=== PATIENT | female | born 1950 | race African-American/Black ===

== ENCOUNTER 2020-06-10 12:58 | Emergency (ER) | payer MEDICARE, MEDICAID ==
[2020-06-10] MEDS ORDERED: Ketorolac Tromethamine 30 MG/ML VIAL ONE (14:33)
== END 2020-06-10 14:59 | disposition home or self-care (01) ==
LOC: CSHERS 12:58
DX: R04.0 Epistaxis (principal); M54.5 Low back pain; R51.9 Headache, unspecified; E11.9 Type 2 diabetes mellitus without complications; I10 Essential (primary) hypertension; I25.10 Atherosclerotic heart disease of native coronary artery without angina pectoris; E78.5 Hyperlipidemia, unspecified; E78.00 Pure hypercholesterolemia, unspecified; I25.2 Old myocardial infarction; F17.210 Nicotine dependence, cigarettes, uncomplicated; Z86.73 Personal history of transient ischemic attack (TIA), and cerebral infarction without residual deficits
CPT/HCPCS: 96372; 99283; J1885

== ENCOUNTER 2021-01-30 20:54 | Emergency (ER) | payer MEDICARE, MEDICAID | END 2021-01-30 21:48 | disposition home or self-care (01) | LOC: CSHERS 20:54 | DX: R04.0 Epistaxis (principal); I10 Essential (primary) hypertension; E11.9 Type 2 diabetes mellitus without complications; I25.10 Atherosclerotic heart disease of native coronary artery without angina pectoris; E78.5 Hyperlipidemia, unspecified; I25.2 Old myocardial infarction; Z86.73 Personal history of transient ischemic attack (TIA), and cerebral infarction without residual deficits; F17.210 Nicotine dependence, cigarettes, uncomplicated; Z79.82 Long term (current) use of aspirin; Z79.899 Other long term (current) drug therapy | CPT/HCPCS: 99283 ==

== ENCOUNTER 2021-03-24 12:33 | Inpatient (IN) | payer MEDICARE, MEDICAID ==
[2021-03-24 13:55] LABS: #Eosinphils 0.1 10x3/uL (0.0-0.5); #Monocytes 0.9 10x3/uL (0.0-1.1); #Neutrophils 9.3 10x3/uL (1.5-8.4); %Basophils 0.2 % (0.0-2.0); %Eosinophils 0.4 % (0.0-6.0); %Monocytes 7.4 % (0.0-10.0); %Neutrophils 79.5 % (40.0-75.0); Hemoglobin 11.7 g/dL (12.0-15.5); Mean Corpuscular HGB CONC 29.3 g/dL (32.0-36.0); Mean Corpuscular Hemoglobin 22.6 pg (27.0-33.0); Mean Corpuscular Volume 77.2 fl (81.6-98.3); Mean Platelet Volume 12.6 fl (7.4-10.4); Platelet Count 267 10x3/uL (150-450); RBC Distribution Width 14.3 % (11.5-14.5); Red Blood Cell (RBC) Count 5.17 10x6/uL (3.90-5.03); White Blood Cell (WBC) Count 11.7 10x3/uL (3.5-10.5)
[2021-03-24] MEDS ORDERED: Ondansetron PF 4 MG/2 ML Vial ONE (14:10)
[2021-03-24 14:15] LABS: ALT (SGPT) 81 U/L (8-55); AST (SGOT) 54 U/L (5-34); Albumin 3.8 g/dL (3.4-4.8); Alkaline Phosphatase 149 U/L (40-110); Anion Gap 18 mmol/L (10-20); BUN (Urea Nitrogen) 21 mg/dL (9.8-20.1); Bilirubin, Total 4.5 mg/dL (0.2-1.2); Calc. Creatinine Clearance 0 mL/min (70-130); Calcium 9.9 mg/dL (7.8-10.44); Carbon Dioxide 19 mmol/L (23-31); Chloride 103 mmol/L (98-107); Globulin 4.2 g/dL (2.4-3.5); Glucose 140 mg/dL (80-115); Potassium 3.7 mmol/L (3.5-5.1); Sodium 136 mmol/L (136-145)
[2021-03-24 14:16] LABS: Hypochromia SLIGHT = 6-15 cells (100X) (0-5/hpf); Microcytosis SLIGHT = 6-15 cells (100X) (0-5/hpf)
[2021-03-24 14:18] LABS: Platelet Morphology Comment Appears Adequate
[2021-03-24 14:44] LABS: Lipase 5338 U/L (8-78)
[2021-03-24] MEDS ORDERED: Morphine 4 MG/ML VIAL ONE (16:02)
[2021-03-24 16:49] LABS: SARS-CoV-2 NAA Rapid Test Not Detected (NotDetected)
[2021-03-24] MEDS ORDERED: Morphine 4 MG/ML VIAL SLOW IVP PRN (18:15)
[2021-03-24] MEDS ORDERED: hydrALAZINE 20 MG/ML VIAL SLOW IVP PRN (18:15)
[2021-03-24] MEDS ORDERED: HumaLOG 300 UNITS/3 ML VIAL SC PRN (18:15)
[2021-03-24] MEDS ORDERED: Dextrose 5% in Water 1,000 ML IV PRN (18:15)
[2021-03-24] MEDS ORDERED: Dextrose 50% Abboject 50 ML SYRINGE SLOW IVP PRN (18:15)
[2021-03-24] MEDS ORDERED: Ondansetron PF 4 MG/2 ML Vial IVP PRN (18:15)
[2021-03-24] MEDS ORDERED: Morphine 2 MG/ML VIAL SLOW IVP PRN (18:15)
[2021-03-24] MEDS ORDERED: Ondansetron ODT 4 MG TAB PO PRN (18:15)
[2021-03-24 20:50] VITALS: BMI 41.8
[2021-03-24] MEDS ORDERED: FLU VACC QS2021-22(65YR UP)/PF 240 MCG/0.7 ML SYRINGE IM ONE (21:15)
[2021-03-24] MEDS ORDERED: Scopolamine 1.5 mg/72 hour Patch TD SCH (21:15)
[2021-03-24] MEDS: Lactated Ringer's 1,000 ML IV SCH (22:56)
[2021-03-24] MEDS: Carvedilol 12.5 MG TAB PO SCH (22:57)
[2021-03-24] MEDS: Enoxaparin Sodium 40 MG/0.4 ML SYRINGE SC SCH (22:58)
[2021-03-25] MEDS: Lactated Ringer's 1,000 ML IV SCH ×5 (01:00→22:50)
[2021-03-25 04:07] LABS: #Monocytes 0.7 10x3/uL (0.0-1.1); #Neutrophils 5.7 10x3/uL (1.5-8.4); %Basophils 0.1 % (0.0-2.0); %Eosinophils 0.3 % (0.0-6.0); %Lymphocytes 12.8 % (18.0-47.0); %Monocytes 8.9 % (0.0-10.0); %Neutrophils 77.6 % (40.0-75.0); Hemoglobin 9.2 g/dL (12.0-15.5); Mean Corpuscular HGB CONC 29.5 g/dL (32.0-36.0); Mean Corpuscular Hemoglobin 22.4 pg (27.0-33.0); Mean Corpuscular Volume 75.9 fl (81.6-98.3); Platelet Count 173 10x3/uL (150-450); RBC Distribution Width 14.3 % (11.5-14.5); Red Blood Cell (RBC) Count 4.11 10x6/uL (3.90-5.03); White Blood Cell (WBC) Count 7.3 10x3/uL (3.5-10.5)
[2021-03-25 04:26] LABS: ALT (SGPT) 46 U/L (8-55); AST (SGOT) 25 U/L (5-34); Albumin 2.9 g/dL (3.4-4.8); Alkaline Phosphatase 105 U/L (40-110); Anion Gap 14 mmol/L (10-20); BUN (Urea Nitrogen) 25 mg/dL (9.8-20.1); Bilirubin, Total 2.9 mg/dL (0.2-1.2); Calc. Creatinine Clearance 52 mL/min (70-130); Calcium 7.9 mg/dL (7.8-10.44); Carbon Dioxide 19 mmol/L (23-31); Chloride 109 mmol/L (98-107); Globulin 2.8 g/dL (2.4-3.5); Glucose 96 mg/dL (80-115); Iron 41 ug/dL (50-170); Iron Binding Capacity, Total 154 mcg/dL (265-497); Lipase 660 U/L (8-78); Potassium 3.7 mmol/L (3.5-5.1); Protein, Total 5.7 g/dL (5.8-8.1); Sodium 138 mmol/L (136-145)
[2021-03-25 04:27] LABS: Hypochromia SLIGHT = 6-15 cells (100X) (0-5/hpf)
[2021-03-25] MEDS ORDERED: EPINEPHrine 1 MG/ML AMP ONE (07:01)
[2021-03-25] MEDS ORDERED: Iopamidol 30 ML ONE (07:02)
[2021-03-25] MEDS ORDERED: Bupivacaine PF 0.5% 30 ML VIAL ONE (07:02)
[2021-03-25] MEDS ORDERED: Indomethacin 50 MG SUPP ONE (07:03)
[2021-03-25] MEDS ORDERED: Ondansetron PF 4 MG/2 ML Vial ONE (07:27)
[2021-03-25] MEDS ORDERED: Glycopyrrolate 0.2 MG/ML 5 ML SYRINGE ONE (07:27)
[2021-03-25] MEDS ORDERED: Rocuronium Bromide 10 MG/ML (10ML VIAL) ONE (07:27)
[2021-03-25] MEDS ORDERED: Lidocaine 1% PF 5 ML VIAL ONE ×2 (07:27→08:47)
[2021-03-25] MEDS ORDERED: Fentanyl 100 MCG/2 ML VIAL ONE (07:27)
[2021-03-25] MEDS ORDERED: PROPOFOL 20 ML ONE (07:27)
[2021-03-25] MEDS ORDERED: Dexamethasone 4 mg/ml Vial ONE (07:28)
[2021-03-25] MEDS ORDERED: Succinylcholine 200 MG/10 ml SYRINGE FS ONE (07:28)
[2021-03-25] MEDS ORDERED: Ketamine 50 MG/ML (10ML VIAL) ONE (07:42)
[2021-03-25] MEDS ORDERED: HYDROmorphone 0.5 MG/0.5 ML SYRINGE ONE (07:42)
[2021-03-25] MEDS ORDERED: SUGAMMADEX SODIUM 200 MG/2 ML VIAL ONE (07:45)
[2021-03-25] MEDS ORDERED: ePHEDrine Sulfate 50 MG/10 ML VIAL ONE ×2 (08:50→09:52)
[2021-03-25] MEDS ORDERED: Pantoprazole 40 MG VIAL IVP SCH (09:00)
[2021-03-25] MEDS ORDERED: PHENYLEPHRINE-NS 100 MCG/ML 10 ML SYRINGE ONE ×2 (09:00→09:36)
[2021-03-25] MEDS ORDERED: Acetaminophen 500 MG TAB PO PRN (09:17)
[2021-03-25] MEDS: Carvedilol 12.5 MG TAB PO SCH ×2 (09:17→20:14)
[2021-03-25] MEDS ORDERED: Morphine 4 MG/ML VIAL SLOW IVP PRN (09:30)
[2021-03-25 12:03] LABS: Hemoglobin A1c 5.4 % (4.0-6.0)
[2021-03-25] MEDS: traMADol HCl 50 MG TAB PO PRN ×2 (15:44→20:15)
[2021-03-25] MEDS: Enoxaparin Sodium 40 MG/0.4 ML SYRINGE SC SCH (20:22)
[2021-03-25] MEDS ORDERED: Atorvastatin Calcium 10 MG TAB PO SCH (21:00)
[2021-03-26 04:03] LABS: #Monocytes 0.7 10x3/uL (0.0-1.1); #Neutrophils 6.7 10x3/uL (1.5-8.4); %Basophils 0.1 % (0.0-2.0); %Lymphocytes 8.3 % (18.0-47.0); %Monocytes 8.3 % (0.0-10.0); %Neutrophils 82.8 % (40.0-75.0); Mean Corpuscular HGB CONC 28.6 g/dL (32.0-36.0); Mean Corpuscular Hemoglobin 22.5 pg (27.0-33.0); Mean Corpuscular Volume 78.7 fl (81.6-98.3); Mean Platelet Volume 12.6 fl (7.4-10.4); Platelet Count 192 10x3/uL (150-450); RBC Distribution Width 14.4 % (11.5-14.5); Red Blood Cell (RBC) Count 4.45 10x6/uL (3.90-5.03); White Blood Cell (WBC) Count 8.2 10x3/uL (3.5-10.5)
[2021-03-26 04:05] LABS: ALT (SGPT) 54 U/L (8-55); AST (SGOT) 51 U/L (5-34); Albumin 3.3 g/dL (3.4-4.8); Alkaline Phosphatase 128 U/L (40-110); Anion Gap 14 mmol/L (10-20); BUN (Urea Nitrogen) 22 mg/dL (9.8-20.1); Bilirubin, Total 1.4 mg/dL (0.2-1.2); Calc. Creatinine Clearance 59 mL/min (70-130); Calcium 8.8 mg/dL (7.8-10.44); Carbon Dioxide 22 mmol/L (23-31); Chloride 107 mmol/L (98-107); Globulin 3.6 g/dL (2.4-3.5); Glucose 121 mg/dL (80-115); Lipase 21 U/L (8-78); Potassium 4.3 mmol/L (3.5-5.1); Protein, Total 6.9 g/dL (5.8-8.1); Sodium 139 mmol/L (136-145)
[2021-03-26 04:42] LABS: Hypochromia SLIGHT = 6-15 cells (100X) (0-5/hpf); Platelet Morphology Comment Appears Adequate; Poikilocytosis SLIGHT = 6-15 cells (100X) (0-5/hpf)
[2021-03-26] MEDS: Lactated Ringer's 1,000 ML IV SCH ×2 (06:30→09:08)
[2021-03-26] MEDS ORDERED: Aspirin 81 mg Enteric Coated Tablet PO SCH (09:00)
[2021-03-26] MEDS ORDERED: Calcium Carbonate + Vit D 250 MG TAB PO SCH (09:00)
[2021-03-26] MEDS ORDERED: Polyethylene Glycol 3350 17 GM Packet PO SCH (09:00)
[2021-03-26] MEDS ORDERED: Calcium Carbonate 600 MG + Vit D TAB PO SCH (09:00)
[2021-03-26] MEDS ORDERED: Clopidogrel Bisulfate 75 MG TAB PO SCH (09:00)
[2021-03-26] MEDS ORDERED: NIFEdipine XL 90 MG TAB PO SCH (09:00)
[2021-03-26] MEDS ORDERED: Valsartan 80 MG TAB PO SCH (09:00)
[2021-03-26] MEDS: Carvedilol 12.5 MG TAB PO SCH (09:03)
[2021-03-26 13:12] VITALS: BP 120/57; TEMP 96
== END 2021-03-26 16:00 | disposition home or self-care (01) | DRG 417 ==
LOC: CSHERS 12:33 → CSHERHOLD 17:05 → CSHTELE 18:05
PROVIDERS: ADMIT Family Medicine; ATTEND Specialist
PROC: 0FT44ZZ Resection of Gallbladder, Percutaneous Endoscopic Approach (ICD-10-PCS; principal; 2021-03-25)
PROC: 0FC98ZZ Extirpation of Matter from Common Bile Duct, Via Natural or Artificial Opening Endoscopic (ICD-10-PCS; 2021-03-25)
PROC: BF141ZZ Fluoroscopy of Gallbladder, Bile Ducts and Pancreatic Ducts using Low Osmolar Contrast (ICD-10-PCS; 2021-03-25)
DX: K80.66 Calculus of gallbladder and bile duct with acute and chronic cholecystitis without obstruction (principal); K85.10 Biliary acute pancreatitis without necrosis or infection; Z68.41 Body mass index [BMI] 40.0-44.9, adult; E11.9 Type 2 diabetes mellitus without complications; I10 Essential (primary) hypertension; I25.10 Atherosclerotic heart disease of native coronary artery without angina pectoris; E78.5 Hyperlipidemia, unspecified; E78.00 Pure hypercholesterolemia, unspecified; F17.210 Nicotine dependence, cigarettes, uncomplicated; D50.9 Iron deficiency anemia, unspecified; E66.9 Obesity, unspecified; I25.2 Old myocardial infarction; Z86.73 Personal history of transient ischemic attack (TIA), and cerebral infarction without residual deficits; Z90.710 Acquired absence of both cervix and uterus; Z95.5 Presence of coronary angioplasty implant and graft; Z88.1 Allergy status to other antibiotic agents; Z88.8 Allergy status to other drugs, medicaments and biological substances; Z20.822 Contact with and (suspected) exposure to COVID-19
CPT/HCPCS: 0240U; 36415; 36416; 74177; 74330; 80053; 82728; 83036; 83540; 83550; 83630; 83690; 84484; 85025; 86850; 86900; 86901; 87045; 87046; 87177; 87324; 87427; 87449; 93005; 94760; 96374; 96375; C1713; J0171; J1100; J1170; J1650; J1956; J2270; J2405; J2704; J3010; J7120; Q9967; S0020

== ENCOUNTER 2021-07-31 17:49 | Emergency (ER) | payer MEDICARE, MEDICAID | END 2021-07-31 19:00 | disposition home or self-care (01) | LOC: CSHERS 17:49 | DX: M54.50 Low back pain, unspecified (principal); E11.9 Type 2 diabetes mellitus without complications; I10 Essential (primary) hypertension; I25.10 Atherosclerotic heart disease of native coronary artery without angina pectoris; E78.5 Hyperlipidemia, unspecified; E78.00 Pure hypercholesterolemia, unspecified; I25.2 Old myocardial infarction; F17.210 Nicotine dependence, cigarettes, uncomplicated; Z86.73 Personal history of transient ischemic attack (TIA), and cerebral infarction without residual deficits | CPT/HCPCS: 99283 ==

== ENCOUNTER 2023-05-10 15:21 | Emergency (ER) | payer MEDICARE, MEDICAID ==
[2023-05-10] MEDS ORDERED: Acetaminophen 500 MG TAB ONE (16:17)
[2023-05-10] MEDS ORDERED: Boostrix 0.5 ML (Tdap) VIAL (>/=7 yrs of age) ONE (16:18)
== END 2023-05-10 17:19 | disposition home or self-care (01) ==
LOC: CSHERS 15:21
DX: S50.312A Abrasion of left elbow, initial encounter (principal); S80.212A Abrasion, left knee, initial encounter; S60.417A Abrasion of left little finger, initial encounter; I10 Essential (primary) hypertension; F17.210 Nicotine dependence, cigarettes, uncomplicated; Z55.6 Problems related to health literacy; W18.30XA Fall on same level, unspecified, initial encounter
CPT/HCPCS: 90471; 90715

== ENCOUNTER 2023-08-01 13:12 | Emergency (ER) | payer MEDICARE, MEDICAID ==
[2023-08-01] MEDS ORDERED: Acetaminophen 500 MG TAB ONE (14:10)
[2023-08-01 14:53] LABS: #Basophils 0.01 10x3/uL (0.0-0.2); #Eosinphils 0.17 10x3/uL (0.0-0.5); #Monocytes 0.56 10x3/uL (0.0-1.1); #Neutrophils 3.44 10x3/uL (1.5-8.4); %Basophils 0.2 % (0.0-2.0); %Eosinophils 2.6 % (0.0-6.0); %Lymphocytes 35.1 % (18.0-47.0); %Monocytes 8.7 % (0.0-10.0); %Neutrophils 53.2 % (40.0-75.0); Hematocrit 32.4 % (34.9-44.5); Hemoglobin 9.7 g/dL (12.0-15.5); Mean Corpuscular HGB CONC 29.9 g/dL (32.0-36.0); Mean Corpuscular Volume 76.8 fL (81.6-98.3); Mean Platelet Volume 11.8 fL (7.4-10.4); Platelet Count 217 10x3/uL (150-450); Red Blood Cell (RBC) Count 4.22 10x6/uL (3.90-5.03); White Blood Cell (WBC) Count 6.5 10x3/uL (3.5-10.5)
[2023-08-01 15:10] LABS: ALT (SGPT) 11 U/L (8-55); AST (SGOT) 12 U/L (5-34); Albumin 3.3 g/dL (3.4-4.8); Alkaline Phosphatase 85 U/L (40-110); Anion Gap 11 mmol/L (10-20); BUN (Urea Nitrogen) 29 mg/dL (9.8-20.1); Bilirubin, Total 0.3 mg/dL (0.2-1.2); Calc. Creatinine Clearance 0 mL/min (70-130); Calcium 9.2 mg/dL (7.8-10.44); Carbon Dioxide 25 mmol/L (23-31); Chloride 107 mmol/L (98-107); Estimated GFR 28; Globulin 3.5 g/dL (2.4-3.5); Glucose 166 mg/dL (83-110); Potassium 3.7 mmol/L (3.5-5.1); Protein, Total 6.8 g/dL (5.8-8.1); Sodium 139 mmol/L (136-145)
== END 2023-08-01 16:11 | disposition home or self-care (01) ==
LOC: CSHERS 13:12
DX: M25.471 Effusion, right ankle (principal); I11.0 Hypertensive heart disease with heart failure; I50.9 Heart failure, unspecified; I25.10 Atherosclerotic heart disease of native coronary artery without angina pectoris; E78.00 Pure hypercholesterolemia, unspecified; F17.210 Nicotine dependence, cigarettes, uncomplicated; Z79.82 Long term (current) use of aspirin; Z79.899 Other long term (current) drug therapy
CPT/HCPCS: 80053; 83880; 85025

== ENCOUNTER 2023-11-18 12:55 | Emergency (ER) | payer MEDICARE, MEDICAID ==
[2023-11-18] MEDS ORDERED: Acetaminophen 325 MG TAB ONE (14:05)
== END 2023-11-18 14:22 | disposition home or self-care (01) ==
LOC: CSHERS 12:55
DX: L73.9 Follicular disorder, unspecified (principal); F17.210 Nicotine dependence, cigarettes, uncomplicated; I25.10 Atherosclerotic heart disease of native coronary artery without angina pectoris; I11.0 Hypertensive heart disease with heart failure; I50.9 Heart failure, unspecified; I25.2 Old myocardial infarction; Z86.73 Personal history of transient ischemic attack (TIA), and cerebral infarction without residual deficits
CPT/HCPCS: 99283